=== PATIENT | male | born 1975 | race Caucasian/White ===

== ENCOUNTER 2022-01-28 10:38 | Outpatient (CLI) | payer OTHER ==
--- NOTE | 2022-01-28 14:08 | XRAY Report ---
PROCEDURE: Knee 2 View RT INDICATIONS: SPRAIN OF R KNEE TECHNIQUE: 2 views of the right knee(s) were acquired. COMPARISON: None. FINDINGS: Bones: No fractures or dislocations. No suspicious bony lesions. Mild degenerative joint disease is present with mild medial joint space narrowing and small periarticular osteophytes. Soft tissues: Trace joint effusion. No suspicious soft tissue calcifications. IMPRESSION: 1. Mild degenerative joint disease. 2. Small knee joint effusion. Reviewed by: Juan Ortega MD on 01/28/2022 2:07 PM PDT Approved by: Juan Ortega MD on 01/28/2022 2:07 PM PDT Station ID: [id number]
== END 2022-01-28 23:59 | disposition home or self-care (01) ==
LOC: DI.N 10:38
PROVIDERS: ATTEND Family Medicine
DX: S83.91XA Sprain of unspecified site of right knee, initial encounter (principal); M17.11 Unilateral primary osteoarthritis, right knee; M25.461 Effusion, right knee

== ENCOUNTER 2022-02-14 06:00 | Outpatient (CLI) | payer OTHER ==
--- NOTE | 2022-02-14 16:26 | XRAY Report ---
PROCEDURE: Knee 3 View RT INDICATIONS: RIGHT KNEE PAIN TECHNIQUE: 3 views of the right knee(s) were acquired. COMPARISON: X-ray knee 01/28/2022 FINDINGS: Bones: No fractures or dislocations. No suspicious bony lesions. Moderate right medial as well as lateral and patellofemoral compartment narrowing. Minimal paratracheal or osteophytes without erosion s. Left knee demonstrates moderate lateral and medial compartment narrowing. Soft tissues: No joint effusion. No suspicious soft tissue calcifications. IMPRESSION: Right sided tricompartmental arthritic change. Reviewed by: America Aguilera MD on 02/14/2022 4:24 PM PDT Approved by: America Aguilera MD on 02/14/2022 4:24 PM PDT Station ID: [id number]
== END 2022-02-14 23:59 | disposition home or self-care (01) ==
LOC: DI.WOS 06:00
PROVIDERS: ATTEND Physician Assistant
DX: S83.91XD Sprain of unspecified site of right knee, subsequent encounter (principal); M17.11 Unilateral primary osteoarthritis, right knee

== ENCOUNTER 2022-04-21 13:44 | Outpatient (CLI) | payer OTHER ==
--- NOTE | 2022-04-21 16:41 | MRI Report ---
PROCEDURE: Knee RT W/O INDICATIONS: INJURY TO RIGHT KNEE TECHNIQUE: Noncontrast sagittal PD fast spin echo and T2 fast spin echo with fat saturation, sagittal 3-D gradie nt sequence with fat saturation; coronal T1 spin echo and PD fast spin echo with fat saturation, and axial PD fast spin echo with fat saturation through the knee. COMPARISON: Right knee radiograph dated 02/14/2022 and 01/29/2020 to. FINDINGS: Image quality: Excellent. Menisci: The medial and lateral menisci demonstrate normal morphology and internal signal. The meni scal root ligaments appear intact. Cruciate ligaments: Moderate grade intrasubstance partial thickness tear involving proximal to midpor tion of anterior cruciate ligament is seen. No full-thickness ACL rupture. PCL is intact. Medial structures: The medial collateral ligament appears mildly thickened near its femoral insertio n. The posterior oblique ligament, semimembranosus tendon insertions, and oblique popliteal ligament , and meniscocapsular junction appear intact. Visualized portions of the pes anserinus tendons appea r normal. No abnormal bursal fluid. Lateral structures: The lateral collateral ligament, long and short heads of the biceps femoris tend on appear intact. The popliteus tendon appears normal; the popliteofibular ligament appears intact. Iliotibial band appears normal. Anterior structures: Distal quadriceps tendinosis and low-grade partial-thickness tear is seen. Proxi mal patella tendinosis is also noted. Patellar alignment is normal. No femoral trochlear dysplasia o r ventral trochlear prominence. No edema in the infrapatellar fat pad. Bones and cartilage: Marrow edema involving lateral periphery of lateral tibial plateau is seen witho ut definite fracture line. Low-grade chondromalacia in medial femoral tibial compartment and medial p atellofemoral compartment is seen. Joint space: There is small amount of joint fluid. No Pereyra's cyst. Normal appearing synovial plic ae are incidentally noted. IMPRESSION: 1. Suggestion of low to moderate grade intrasubstance partial thickness tear involving anterior cruci ate ligament near its proximal to midportion. No ACL rupture. PCL is intact. 2. No evidence of focal meniscal tear. 3. Suggestion of bony contusion involving lateral periphery of lateral tibial plateau. No other area of abnormal marrow signal is seen. Small amount of joint fluid, no gross loose bodies. Low-grade arturo dromalacia in medial femoral tibial compartment and medial patellofemoral compartment is seen. 4. Distal quadriceps tendinosis and low-grade partial-thickness tear. Proximal patella tendinosis. No full-thickness tendon rupture. 5. Low-grade proximal MCL sprain. Reviewed by: Rasheed Caruso MD on 04/21/2022 4:39 PM PDT Approved by: Rasheed Caruso MD on 04/21/2022 4:39 PM PDT Station ID: [id number]
== END 2022-04-21 13:45 | disposition home or self-care (01) ==
LOC: DI 13:44
PROVIDERS: ATTEND Physician Assistant Surgical
DX: S76.111A Strain of right quadriceps muscle, fascia and tendon, initial encounter (principal); S83.411A Sprain of medial collateral ligament of right knee, initial encounter; M94.261 Chondromalacia, right knee; M67.961 Unspecified disorder of synovium and tendon, right lower leg